=== PATIENT | female | born 1955 | race Caucasian/White ===

== ENCOUNTER 2018-01-19 11:30 | Emergency (ER) | payer BC ==
[2018-01-19 11:51] VITALS: BP 148/88
--- NOTE | 2018-01-19 12:39 | ER Document Report ---
HPI - HPI Patient complains to provider of: injured left side of foot ant 3rd toe Onset: Yesterday Pain Level: 4 Context: 62 yo female injured left side of foot and 5th toe yesterday. Painful to walk on it. Associated Symptoms: None Exacerbated by: Walking Relieved by: Denies - ROS ROS below otherwise negative: Yes Systems Reviewed and Negative: Yes All other systems reviewed and negative Past Medical History - General Information source: Patient - Social History Smoking Status: Unknown if Ever Smoked Lives with: Family Family History: Reviewed & Not Pertinent - Medical History Medical History: Negative Surgical Hx: Negative Vertical Provider Document - CONSTITUTIONAL Agree With Documented VS: Yes Exam Limitations: No Limitations General Appearance: No Apparent Distress - INFECTION CONTROL TRAVEL OUTSIDE OF THE [place] IN LAST 30 DAYS: No - MUSCULOSKELETAL/EXTREMETIES Musculoskeletal/Extremeties: MAEW, FROM, Tender - dorsal lateral 3rd toe, mild swelling, Edema - NEURO Level of Consciousness: Alert Course - Re-evaluation Re-evalutation: 01/19/18 12:53 Spoke with the radiologist who does not believe that the proximal aspect of the third phalanx is fractured but I will treated with anu taping and fracture shoe because of the pain. And I will also continue to have her follow-up with orthopedics. - Vital Signs Vital signs: Temp Pulse Resp BP Pulse Ox 98.1 F 76 16 148/88 H 96 01/19/18 11:50 01/19/18 11:50 01/19/18 11:50 01/19/18 11:50 01/19/18 11:50 Discharge - Discharge Clinical Impression: Left fifth toe sprain Condition: Good Disposition: HOME, SELF-CARE Instructions: Acetaminophen, Anu Taping (toes) ([facility]), Ibuprofen (General) ( [facility]), Sprained Toe ([facility]) Additional Instructions: Anu tape for comfort Fracture shoe so you do not have to bend this toe See orthopedic doctor for follow-up Tylenol up to 4000 mg a day for pain Motrin 600 mg every 6-8 hours for pain and inflammation Prescriptions: Ibuprofen [Motrin 600 mg Tablet] 600 mg PO Q8HP PRN #30 tablet PRN Reason: Referrals: JOE JOYCE DO [ACTIVE STAFF] - Follow up in 1 week
--- NOTE | 2018-01-19 12:48 | RADIOLOGY REPORT (SQ) ---
EXAM DESCRIPTION: FOOT RIGHT COMPLETE COMPLETED DATE/TIME: 01/19/2018 12:31 pm REASON FOR STUDY: pain right foot along pinky toe and side of foot COMPARISON: None. NUMBER OF VIEWS: Three views. TECHNIQUE: AP, lateral and oblique radiographic images acquired of the right foot. LIMITATIONS: None. FINDINGS: MINERALIZATION: Normal. BONES: No acute fracture or dislocation. No worrisome bone lesions. JOINTS: Intact. Hallux valgus. SOFT TISSUES: No soft tissue swelling. No foreign body. OTHER: No other significant finding. IMPRESSION: NO RADIOGRAPHIC EVIDENCE OF ACUTE INJURY. TECHNICAL DOCUMENTATION: JOB ID: [id number] [employer]- All Rights Reserved Reading location - IP/workstation name: [email or web address]
== END 2018-01-19 13:12 | disposition home or self-care (01) ==
LOC: ER 11:30
DX: S93.505A Unspecified sprain of left lesser toe(s), initial encounter (principal); X58.XXXA Exposure to other specified factors, initial encounter
CPT/HCPCS: 99283